=== PATIENT | male | born 1980 | race Caucasian/White ===

== ENCOUNTER 2018-03-01 08:30 | Emergency (ER) | payer OTHER ==
--- OUTSIDE RECORDS SUMMARY | 2018-03-01 08:33 | XMS REPORT | Summary of Care ---
:1980 Author Name Danitza Bingham M.A. Address Unavailable Unavailable , Care Team Providers Name Role Phone IRMA ACOSTA M.D. Unavailable Unavailable Unavailable Unavailable Unavailable Functional Status Name Dates Details Functional status health issues are not documented Status: Name Dates Details Cognitive status health issues are not documented Status: Problems Name Dates Details Anxiety (300.00, F41.9) Status: Active Medications Name Dates Details DiazePAM 10 MG Oral Tablet TAKE 1 TABLET 1 HOUR PRIOR TO PROCEDURE, MAY REPEAT IF NEEDED. Quantity: 3 Refills: 0 IRMA ACOSTA M.D. Start : 03-Dec-2017 Active Allergies and Adverse Reactions Name Dates Details No Known Drug Allergies (Allergy) Status: Active Procedures Procedure Dates Details Procedures not documented Immunization Name Dates Details Immunizations not documented Social History Name Dates Details Unknown if ever smoked Vital Signs Date Test Result Details No Known Vitals to report Results Date Description Value Details Results not documented Plan of Care Name Dates Details Planned Observations Planned Goals not documented Interventions Provided Medication ChangesDiazePAM 10 MG Oral Tablet - Renew Instructions Name Dates Details Instructions not documented Encounters Appointment; IRMA ACOSTA M.D. On: 09-May-2017 10:30 Encounter Diagnosis: Problem not documented Appointment; IRMA ACOSTA M.D. On: 27-May-2017 10:00 Encounter Diagnosis: Problem not documented Appointment; PIERRE DUFFY, PTammiATammi On: 04-Jun-2017 11:15 Encounter Diagnosis: Problem not documented Appointment; IRMA ACOSTA M.D. On: 25-Jul-2017 11:00 Encounter Diagnosis: Problem not documented Appointment; PIERRE DUFFY PChristophe On: 05-Sep-2017 11:15 Encounter Diagnosis: Problem not documented Appointment; IRMA ACOSTA M.D. On: 08-Oct-2017 7:30 Encounter Diagnosis: Problem not documented Appointment; IRMA ACOSTA M.D. On: 03-Dec-2017 13:15 Encounter Diagnosis: Problem not documented
--- OUTSIDE RECORDS SUMMARY | 2018-03-01 08:33 | XMS REPORT | Clinical Summary ---
:1980 Author Organization [facility] Address [address] [place] [id number] Phone Care Team Providers Name Role Phone Unavailable Primary Care Provider Unavailable Allergies Not on File Current Medications Not on file Active Problems Not on file Encounters Date Type Specialty Care Team Description 09/23/2017 Procedure Pass 09/22/2017 Anesthesia Event Cathy Graham MD 08/28/2017 Orders Only Neurosurgery Prince Stein, Pre-op testing ( Primary MD Dx) after 02/28/2017 Social History Tobacco Use Types Packs/Day Years Used Date Never Assessed Sex Assigned at Date Recorded Not on file Last Filed Vital Signs Not on file Plan of Treatment Not on file Results Not on fileafter 02/28/2017
[2018-03-01] MEDS ORDERED: HYDROCODONE/APAP 10/325 TAB ONE (09:39)
--- NOTE | 2018-03-01 09:40 | EDPHYS ---
Physician Documentation [facility] Name: Khang Tejada Age: 38 yrs Sex: Male : 1980 Arrival Date: 03/01/2018 Time: 08:34 Bed 15 Private MD: ED Physician Reid Cruz HPI: 03/01 10:11 This 38 yrs old Male presents to ER via Ambulatory with complaints of kdr Surgical Sight Reopened. 10:11 Patient presents to ED for recheck of: laceration. The affected area is on the thoracic kdr area and left low back. Previous treatment: The patient had spinal surgery (5 1/2 weeks ago) and over the last week or more, the wounds have started to open up/dehiscence . 10:12 The patient has not experienced similar symptoms in the past. The patient has been kdr recently seen by a physician:. Historical: - Allergies: 08:37 No Known Allergies; ss - Immunization history:: Adult Immunizations up to date. - Social history:: Smoking status: Patient/guardian denies using tobacco. - Ebola Screening: : Patient denies exposure to infectious person Patient denies travel to an Ebola-affected area in the 21 days before illness onset. ROS: 10:12 Constitutional: Negative for fever, chills, and weight loss, Eyes: Negative for injury, kdr pain, redness, and discharge, Neck: Negative for injury, pain, and swelling, Cardiovascular: Negative for chest pain, palpitations, and edema, Respiratory: Negative for shortness of breath, cough, wheezing, and pleuritic chest pain, Abdomen/GI: Negative for abdominal pain, nausea, vomiting, diarrhea, and constipation, : Negative for injury, bleeding, discharge, and swelling, MS/Extremity: Negative for injury and deformity, Neuro: Negative for headache, weakness, numbness, tingling, and seizure activity. Psych: Negative for depression, anxiety, suicide ideation, homicidal ideation, and hallucinations, Allergy/Immunology: Negative for hives, rash, and allergies, Endocrine: Negative for neck swelling, polydipsia, polyuria, polyphagia, and marked weight changes, Hematologic/Lymphatic: Negative for swollen nodes, abnormal bleeding, and unusual bruising. 10:12 Back: Positive for pain at rest, Vertical incision to the mid thoracic region 4 cm, slightly open with a depth of about 3 mm. Left posterior upper buttock with a horizontal incision 5 cm open to a depth of 5 mm. Exam: 10:12 Constitutional: This is a well developed, well nourished patient who is awake, alert, kdr and in no acute distress. Head/Face: Normocephalic, atraumatic. 10:12 Back: See the above note. Vital Signs: 08:37 Pulse 86; Resp 16; Temp 97.4(TE); Pulse Ox 100% on R/A; Weight 137.89 kg; Height 6 ft. ss 2 in. (187.96 cm); Pain 5/10; 08:39 BP 119 / 86; ss 10:33 BP 120 / 80; Pulse 85; Resp 18; Pulse Ox 100% on R/A; hj 08:37 Body Mass Index 39.03 (137.89 kg, 187.96 cm) ss MDM: 09:39 Patient medically screened. kdr 10:36 Data reviewed: vital signs, nurses notes. kdr 03/01 09:35 Order name: [facility]. Order: Clean wounds with sterile H2O and then apply benzoin and kdr steri-strips Cover with non-stick; Complete Time: 10:34 Administered Medications: 09:35 Drug: Waterloo 10 mg-325 mg 1 tabs Route: PO; hj 10:33 Follow up: Response: No adverse reaction; Pain is decreased hj 09:41 Drug: Clindamycin 300 mg Route: PO; hj 10:33 Follow up: Response: No adverse reaction hj Disposition: 03/01/18 09:39 Discharged to Home. Impression: Back wound dehiscense. - Condition is Stable. - Prescriptions for Clindamycin HCl 300 mg Oral Capsule - take 1 capsule by ORAL route every 6 hours for 7 days; 28 capsule. Tylenol- Codeine #3 300-30 mg Oral Tablet - take 2 tablets by ORAL route every 6 hours As needed; 16 tablet. - Medication Reconciliation Form, Thank You Letter, Antibiotic Education, Prescription Opioid Use form. - Follow up: Private Physician; When: 2 - 3 days; Reason: If symptoms return, Further diagnostic work-up, Recheck today's complaints, Continuance of care, Re-evaluation by your physician. - Problem is an ongoing problem. - Symptoms have improved. Signatures: Reid Cruz MD MD kdr Neda Castro RN Marvin Acuna RN RN hj Corrections: (The following items were deleted from the chart) 10:30 10:11 Previous treatment: The patient had spinal surgery and over the last week or kdr more, the wounds have started to open up. kdr 10:33 09:39 03/01/2018 09:39 Discharged to Home. Impression: Back wound dehiscense. Condition hj is Stable. Forms are Medication Reconciliation Form, Thank You Letter, Antibiotic Education, Prescription Opioid Use. Follow up: Private Physician; When: 2 - 3 days; Reason: If symptoms return, Further diagnostic work-up, Recheck today's complaints, Continuance of care, Re-evaluation by your physician. Problem is an ongoing problem. Symptoms have improved. kdr
--- NOTE | 2018-03-01 09:40 | ER ---
Nurse's Notes [facility] Name: Khang Tejada Age: 38 yrs Sex: Male : 1980 Arrival Date: 03/01/2018 Time: 08:34 Bed 15 Private MD: Diagnosis: Back wound dehiscense Presentation: 03/01 08:35 Presenting complaint: Patient states: Patient reports that he had a spinal stimulator ss placed 5.5 weeks ago by a neurosurgeon in [place], had the sutures and fei removed after 4 weeks postop. Patient reports that sometime during the night and/ or this morning, incisions have opened. Transition of care: patient was not received from another setting of care. Onset of symptoms was March 01, 2018. Risk Assessment: Do you want to hurt yourself or someone else? Patient reports no desire to harm self or others. Initial Sepsis Screen: Does the patient meet any 2 criteria? No. Patient's initial sepsis screen is negative. Does the patient have a suspected source of infection? No. Patient's initial sepsis screen is negative. Care prior to arrival: None. 08:35 Method Of Arrival: Ambulatory ss 08:35 Acuity: LUZMA 3 ss Triage Assessment: 08:57 General: Appears in no apparent distress. uncomfortable, Behavior is calm, cooperative, hj appropriate for age. Pain: Denies pain. Historical: - Allergies: 08:37 No Known Allergies; ss - Immunization history:: Adult Immunizations up to date. - Social history:: Smoking status: Patient/guardian denies using tobacco. - Ebola Screening: : Patient denies exposure to infectious person Patient denies travel to an Ebola-affected area in the 21 days before illness onset. Screenin:57 Abuse screen: Denies threats or abuse. Denies injuries from another. Nutritional hj screening: No deficits noted. Tuberculosis screening: No symptoms or risk factors identified. Fall Risk None identified. Assessment: 08:37 Reassessment: see triage assessment;. hj Vital Signs: 08:37 Pulse 86; Resp 16; Temp 97.4(TE); Pulse Ox 100% on R/A; Weight 137.89 kg; Height 6 ft. ss 2 in. (187.96 cm); Pain 5/10; 08:39 BP 119 / 86; ss 10:33 BP 120 / 80; Pulse 85; Resp 18; Pulse Ox 100% on R/A; hj 08:37 Body Mass Index 39.03 (137.89 kg, 187.96 cm) ED Course: 08:34 Patient arrived in ED. mr 08:37 Triage completed. ss 08:37 Arm band placed on right wrist. ss 08:46 Reid Cruz MD is Attending Physician. kdr 08:55 Marvin Gutierrez, KIRAN is Primary Nurse. hj 08:57 Patient has correct armband on for positive identification. Bed in low position. Call hj light in reach. Side rails up X 1. Adult w/ patient. 10:32 No provider procedures requiring assistance completed. Patient did not have IV access hj during this emergency room visit. Administered Medications: 09:35 Drug: Romeo 10 mg-325 mg 1 tabs Route: PO; hj 10:33 Follow up: Response: No adverse reaction; Pain is decreased hj 09:41 Drug: Clindamycin 300 mg Route: PO; hj 10:33 Follow up: Response: No adverse reaction hj Outcome: 09:39 Discharge ordered by . kdr 10:32 Discharged to home ambulatory. hj 10:32 Condition: stable 10:32 Discharge instructions given to patient, family, Instructed on discharge instructions, follow up and referral plans. Demonstrated understanding of instructions, follow-up care, medications, Prescriptions given X 2. 10:33 Patient left the ED. hj Signatures: Reid Cruz MD MD kdr Rivera, Maria mr CastroNeda, KIRAN BECK Marvin Gutierrez RN RN hj Corrections: (The following items were deleted from the chart) 08:39 08:35 Acuity: LUZMA 4 [facility]
[2018-03-01] MEDS ORDERED: Mastisol Adhesive Liq ONE (09:51)
[2018-03-01] MEDS ORDERED: CLINDAMYCIN HCL 150 MG CAP ONE (09:54)
[2018-03-01 10:38] VITALS: TEMP 97.4; O2SAT 100
[2018-03-01 10:40] VITALS: BP 120/80
== END 2018-03-01 10:33 | disposition home or self-care (01) ==
LOC: ER 08:30
DX: T81.31XA Disruption of external operation (surgical) wound, not elsewhere classified, initial encounter (principal); Z98.890 Other specified postprocedural states
CPT/HCPCS: 99283

== ENCOUNTER 2018-06-11 14:47 | Emergency (ER) | payer OTHER ==
--- OUTSIDE RECORDS SUMMARY | 2018-06-11 14:50 | XMS REPORT | Clinical Summary ---
:1980 Author Organization [facility] Address [address] [place] [id number] Care Team Providers Name Role Phone Unavailable Primary Care Provider Unavailable Allergies Not on File Medications Not on file Active Problems Not on file Encounters Date Type Specialty Care Team Description 09/22/2017 Anesthesia Event Cathy Graham MD 08/28/2017 Orders Only Neurosurgery Prince Stein, Pre-op testing ( Primary MD Dx) after 06/10/2017 Social History Tobacco Use Types Packs/Day Years Used Date Never Assessed Sex Assigned at Date Recorded Not on file Job Start Date Occupation Industry Not on file Not on file Not on file Travel History Travel Start Travel End No recent travel history available. Last Filed Vital Signs Not on file Plan of Treatment Not on file Results Not on fileafter 06/10/2017 Insurance Payer Benefit Plan / Group Subscriber ID Type Phone Address MEDICARE MEDICARE A B xxxxxxxxxx Medicare FOR LIFE xxxxxxxxx Other Govt (, [place], [facility], etc.) (Home) [place] [address]
--- NOTE | 2018-06-11 17:03 | RAD REPORT ---
EXAM DESCRIPTION: US - Extremity Venous Uni Ltd - 06/11/2018 4:46 pm CLINICAL HISTORY: Leg pain and swelling COMPARISON: None. TECHNIQUE: Real-time sonographic evaluation of the right lower extremity deep venous systems was per formed. FINDINGS: Normal compressibility, flow augmentation, phasic flow and spontaneous flow are identified in the right lower extremity common femoral, superficial femoral, popliteal and posterior tibial vei ns. No intraluminal filling defects seen. IMPRESSION: No DVT in the right lower extremity.
--- NOTE | 2018-06-11 17:04 | RAD REPORT ---
EXAM DESCRIPTION: RAD - Chest Single View - 06/11/2018 4:50 pm CLINICAL HISTORY: Dyspnea COMPARISON: April 2014 TECHNIQUE: AP portable chest image was obtained 1643 hours . FINDINGS: Lungs are clear. Heart and vasculature are normal. No measurable pleural effusion and no p neumothorax. No acute bony abnormality seen. No acute aortic findings suspected. IMPRESSION: No acute cardiopulmonary process. No significant interval change.
[2018-06-11 17:06] LABS: Absolute Lymphocytes (CBC) 1.7 K/uL (0.7-4.9); Absolute Monocytes 0.6 K/uL (0.1-1.3); Basophils % 0.6 % (0-1.3); Eosinophils % 4.1 % (0-4.4); Hematocrit 41.6 % (39.6-49.0); Lymphocytes % 19.9 % (15.3-44.8); MCH 30.4 pg (27.0-35.0); MCV 88.6 fL (80-100); MPV 7.9 fL (7.6-11.3); Monocytes % 7.1 % (3.3-12.3); RBC Red Blood Cell Count 4.69 M/uL (4.33-5.43)
[2018-06-11 17:10] LABS: Protime INR 1.03
[2018-06-11 17:36] LABS: ALT/SGPT 52 U/L (12-78); AST/SGOT 28 U/L (15-37); Albumin 3.8 g/dL (3.4-5.0); Alkaline Phosphatase 83 U/L (45-117); BUN Blood Urea Nitrogen 12 mg/dL (7-18); Bicarbonate 29 mmol/L (21-32); Bilirubin Direct 0.1 mg/dL (0-0.2); Bilirubin Total 0.5 mg/dL (0.2-1.0); Glucose Level 101 mg/dL (74-106); Magnesium 2.3 mg/dL (1.8-2.4); NT PRO-BNP 20 pg/mL (<125); Potassium 3.3 mmol/L (3.5-5.1); Protein, Total 7.6 g/dL (6.4-8.2); Sodium Level 139 mmol/L (136-145); Troponin (Emerg Dept Use Only) < 0.02 ng/mL (0.0-0.045)
--- NOTE | 2018-06-11 18:01 | RAD REPORT ---
EXAM DESCRIPTION: CT - Chest For Pe Angio - 06/11/2018 5:54 pm CLINICAL HISTORY: Chest pain, shortness of breath COMPARISON: Chest films same date, CT study April 2015 TECHNIQUE: Dynamically enhanced 3 mm thick images of the chest were obtained during administration o f approximately 150mL Isovue 370 IV contrast. Coronal and oblique MIP reconstruction images were gene rated and reviewed. Exam utilizes a protocol to evaluate the pulmonary arterial tree. All CT scans are performed using dose optimization technique as appropriate and may include automated exposure control or mA/KV adjustment according to patient size. FINDINGS: No pulmonary emboli are identified. The aorta as imaged shows no acute or suspicious finding. No pericardial thickening or effusion. No focal consolidation or suspicious mass lesion. In the anterior left upper lobe an 8 millimeter non calcified nodule is seen. Approximately 7 millimeter nodule was seen in 2015. On today's study there is motion degradation that obscures the margins and probably exaggerates the size. No other nodule se en. No pleural effusion or pleural thickening. No mediastinal or hilar suspicious masses. No chest wall masses or abnormal axillary lymphadenopathy. IMPRESSION: No pulmonary emboli identified. No focal lung parenchymal process. Small pulmonary nodule in the anterior left upper lobe measures larger than 2015 though this is suspe cted to be due to motion. As a precaution, repeat CT chest examination in 6-12 months could be perfor med to monitor stability.
[2018-06-11] MEDS ORDERED: LORazepam 2 MG/ML VIAL ONE (18:12)
--- NOTE | 2018-06-11 19:34 | RAD REPORT ---
EXAM DESCRIPTION: RAD - Knee Right 3 View - 06/11/2018 6:40 pm CLINICAL HISTORY: Knee pain and swelling, no trauma history detailed. COMPARISON: None. FINDINGS: No fracture, dislocation or periosteal reaction.No measurable joint effusion seen. No join t space narrowing. Very minimal lateral compartment marginal spurs seen. Patella femoral joint space is normal. IMPRESSION: No acute right knee bone or joint finding. Clinical concerns for internal derangement or occult bony injury could be further assessed with MR im aging.
--- NOTE | 2018-06-11 21:15 | ER ---
Nurse's Notes [facility] Name: Khang Tejada Age: 38 yrs Sex: Male : 1980 Arrival Date: 06/11/2018 Time: 14:49 Bed 25 Private MD: Unknown, Unknown Diagnosis: Pain in right knee;Acute stress reaction Presentation: 06/11 15:03 Presenting complaint: Patient states: i have SOB since Friday worst when i lay down; hj now my R leg is swollen and my R leg is hurting; denies chest pain; denies fever and chills;. Transition of care: patient was not received from another setting of care. Onset of symptoms was June 11, 2018. Risk Assessment: Do you want to hurt yourself or someone else? Patient reports no desire to harm self or others. Initial Sepsis Screen: Does the patient meet any 2 criteria? No. Patient's initial sepsis screen is negative. Does the patient have a suspected source of infection? No. Patient's initial sepsis screen is negative. Care prior to arrival: None. 15:03 Method Of Arrival: Ambulatory 15:03 Acuity: LUZMA 3 hj Triage Assessment: 15:07 General: Appears in no apparent distress. uncomfortable, Behavior is calm, cooperative, hj appropriate for age. Respiratory: Reports shortness of breath labored breathing Onset: The symptoms/episode began/occurred suddenly, Historical: - Allergies: 15:06 No Known Drug Allergies; hj - Home Meds: 15:06 Oxycodone HCl Oral [Active]; venlafaxine oral oral [Active]; hj - PMHx: 15:06 Hypertension; Back pain; hj - PSHx: 15:06 back; hj - Immunization history:: Adult Immunizations up to date. - Social history:: Smoking status: Patient/guardian denies using tobacco, Patient/guardian denies using alcohol. - Ebola Screening: : Patient negative for fever greater than or equal to 101.5 degrees Fahrenheit, and additional compatible Ebola Virus Disease symptoms Patient denies exposure to infectious person Patient denies travel to an Ebola-affected area in the 21 days before illness onset. Screenin:06 Abuse screen: Denies threats or abuse. Denies injuries from another. Nutritional hj screening: No deficits noted. Tuberculosis screening: No symptoms or risk factors identified. Fall Risk None identified. Assessment: 15:06 Pain: Complains of pain in back. Cardiovascular: Rhythm is. Respiratory: Airway is hj patent Respiratory effort is even, unlabored, Respiratory pattern is regular, symmetrical, Breath sounds are clear. 16:26 General: Appears in no apparent distress. well groomed, well developed, well nourished, tl3 Behavior is calm, cooperative, appropriate for age. Pain: Complains of pain in back. Neuro: No deficits noted. Level of Consciousness is awake, alert, obeys commands, Oriented to person, place, time, situation, Appropriate for age. Cardiovascular: Heart tones S1 S2 present. Respiratory: Airway is patent Respiratory effort is even, unlabored, Respiratory pattern is regular, symmetrical. GI: No deficits noted. No signs and/or symptoms were reported involving the gastrointestinal system. : No deficits noted. No signs and/or symptoms were reported regarding the genitourinary system. EENT: No deficits noted. No signs and/or symptoms were reported regarding the EENT system. Derm: No deficits noted. No signs and/or symptoms reported regarding the dermatologic system. Musculoskeletal: Reports swelling in right thigh and lower leg. 16:28 Reassessment: ultra sound at bedside. tl3 17:15 Reassessment: pt anxious Yoan at bedside. tl3 18:54 Reassessment: Patient appears in no apparent distress at this time. Patient and/or tl3 family updated on plan of care and expected duration. Pain level reassessed. pt is sleeping quietly. 20:22 Reassessment: Patient appears in no apparent distress at this time. No changes from tl3 previously documented assessment. Patient and/or family updated on plan of care and expected duration. Pain level reassessed. Patient is alert, oriented x 3, equal unlabored respirations, skin warm/dry/pink. pt continues to sleep quietly. 21:24 Reassessment: Patient appears in no apparent distress at this time. No changes from tl3 previously documented assessment. Patient and/or family updated on plan of care and expected duration. Pain level reassessed. Patient is alert, oriented x 3, equal unlabored respirations, skin warm/dry/pink. Vital Signs: 15:07 BP 107 / 86; Pulse 88; Resp 18; Temp 97.5(TE); Pulse Ox 100% on R/A; Weight 142.88 kg; hj Height 6 ft. 1 in. (185.42 cm); Pain 0/10; 17:00 BP 114 / 98; Pulse 93; Resp 28; Pulse Ox 96% ; tl3 18:57 BP 111 / 93; Pulse 85; Resp 17; Pulse Ox 99% on R/A; tl3 20:17 BP 130 / 81; Pulse 83; Resp 18; Pulse Ox 98% on R/A; mg2 20:22 BP 130 / 81; Pulse 73; Resp 14; Pulse Ox 98% on R/A; tl3 21:24 BP 118 / 83; Pulse 96; Resp 16; Pulse Ox 98% on R/A; tl3 15:07 Body Mass Index 41.56 (142.88 kg, 185.42 cm) ED Course: 14:49 Patient arrived in ED. ag5 14:50 Unknown, Unknown is Private Physician. ag5 15:04 Triage completed. hj 15:07 Arm band placed on left wrist. hj 15:07 Patient has correct armband on for positive identification. Bed in low position. Call light in reach. Side rails up X 1. 15:48 Yoan Souza PA is PHCP. jr8 15:48 Reid Cruz MD is Attending Physician. jr8 16:09 Lydia Perdue, KIRAN is Primary Nurse. tl3 16:26 No provider procedures requiring assistance completed. tl3 16:46 US Extremity Venous Unilateral Ltd In Process Unspecified. EDMS 16:51 XRAY Chest (1 view) In Process Unspecified. EDMS 16:55 Basic Metabolic Panel Sent. ds4 16:55 CBC with Diff Sent. ds4 16:56 LFT's Sent. ds4 16:56 Magnesium Sent. ds4 16:56 NT PRO-BNP Sent. ds4 16:56 PT-INR Sent. ds4 16:56 Troponin (emerg Dept Use Only) Sent. ds4 16:56 Basic Metabolic Panel Sent. ds4 16:56 Inserted saline lock: 18 gauge in left antecubital area, using aseptic technique. Blood ds4 collected. 17:03 EKG done, by precision optics technician. reviewed by Yoan RALPH. sm3 17:15 Radiology exam delayed due to lab results not completed at this time. (BUN/Creatinine). nj 17:55 CT Chest For PE Angio In Process Unspecified. EDMS 18:25 PHCP role handed off by Yoan Souza PA pm1 18:25 Octaviano Medley NP is PHCP. pm1 18:40 XRAY Knee RIGHT 3 view In Process Unspecified. EDMS 21:24 IV discontinued, intact, bleeding controlled, No redness/swelling at site. Pressure tl3 dressing applied. Administered Medications: 18:38 Drug: Ativan 1 mg Route: IVP; Site: left antecubital; mg2 19:03 Follow up: Response: No adverse reaction tl3 18:45 Drug: Ativan 1 mg Route: IVP; Infused Over: 2 mins; Site: left antecubital; tl3 19:04 Follow up: Response: No adverse reaction; Marked relief of symptoms tl3 Outcome: 21:14 Discharge ordered by . pm1 21:24 Discharged to home ambulatory. tl3 21:24 Condition: stable 21:24 Discharge instructions given to patient, Instructed on discharge instructions, follow up and referral plans. Demonstrated understanding of instructions, follow-up care. 21:27 Patient left the ED. tl3 Signatures: Dispatcher [employer] EDMS Yoan Souza PA PA jr8 Vern Fernández ds4 Marvin Gutierrez RN RN hj Octaviano Medley NP [employer]HER [employer] BINDER OPERATOR pm1 Bertin Benson Tammy, RN RN tl3 Terry Ramirez RN RN mg2 Eda Mitchell sm3 Eufemia Mackenzie ag5 Corrections: (The following items were deleted from the chart) 15:09 15:07 Pulse 66bpm; Resp 18bpm; Pulse Ox 100% RA; Temp 97.5F Temporal; 142.88 kg; Height hj 6 ft. 1 in.; BMI: 41.5; Pain 0/10; hj 15:12 15:07 Pulse 88bpm; Resp 18bpm; Pulse Ox 100% RA; Temp 97.5F Temporal; 142.88 kg; Height hj 6 ft. 1 in.; BMI: 41.5; Pain 0/10; hj
--- NOTE | 2018-06-11 21:16 | EDPHYS ---
Physician Documentation [facility] Name: Khang Tejada Age: 38 yrs Sex: Male : 1980 Arrival Date: 06/11/2018 Time: 14:49 Bed 25 Private MD: Unknown, Unknown ED Physician Reid Cruz HPI: 06/11 17:13 This 38 yrs old Male presents to ER via Ambulatory with complaints of jr8 Shortness Of Breath, RIGHT LEG SWOLLEN. 17:13 Onset: The symptoms/episode began/occurred acutely, 4 day(s) ago. Duration: The jr8 symptoms are continuous. The patient's shortness of breath is aggravated by supine position. Severity of symptoms: At their worst the symptoms were moderate in the emergency department the symptoms are unchanged. The patient has not experienced similar symptoms in the past. The patient has not recently seen a physician. Patient stated that she has shortness of breath that was worse with laying down a few months ago. Was seen in ED with negative results. This past Friday, started with similar symptoms but also noted leg swelling to right side . Historical: - Allergies: 15:06 No Known Drug Allergies; hj - Home Meds: 15:06 Oxycodone HCl Oral [Active]; venlafaxine oral oral [Active]; hj - PMHx: 15:06 Hypertension; Back pain; hj - PSHx: 15:06 back; hj - Immunization history:: Adult Immunizations up to date. - Social history:: Smoking status: Patient/guardian denies using tobacco, Patient/guardian denies using alcohol. - Ebola Screening: : Patient negative for fever greater than or equal to 101.5 degrees Fahrenheit, and additional compatible Ebola Virus Disease symptoms Patient denies exposure to infectious person Patient denies travel to an Ebola-affected area in the 21 days before illness onset. ROS: 17:13 Eyes: Negative for injury, pain, redness, and discharge, ENT: Negative for injury, jr8 pain, and discharge, Neck: Negative for injury, pain, and swelling, Abdomen/GI: Negative for abdominal pain, nausea, vomiting, diarrhea, and constipation, Back: Negative for injury and pain, MS/Extremity: Negative for injury and deformity. Positive for swelling Skin: Negative for injury, rash, and discoloration, Neuro: Negative for headache, weakness, numbness, tingling, and seizure. 17:13 Cardiovascular: Positive for edema, orthopnea. 17:13 Respiratory: Positive for dyspnea on exertion, orthopnea, shortness of breath. Exam: 18:20 Head/Face: Normocephalic, atraumatic. Eyes: Pupils equal round and reactive to light, jr8 extra-ocular motions intact. Lids and lashes normal. Conjunctiva and sclera are non-icteric and not injected. Cornea within normal limits. Periorbital areas with no swelling, redness, or edema. ENT: Nares patent. No nasal discharge, no septal abnormalities noted. Tympanic membranes are normal and external auditory canals are clear. Oropharynx with no redness, swelling, or masses, exudates, or evidence of obstruction, uvula midline. Mucous membranes moist. Neck: Trachea midline, no thyromegaly or masses palpated, and no cervical lymphadenopathy. Supple, full range of motion without nuchal rigidity, or vertebral point tenderness. No Meningismus. Cardiovascular: Regular rate and rhythm with a normal S1 and S2. No gallops, murmurs, or rubs. Normal PMI, no JVD. No pulse deficits. Respiratory: Lungs have equal breath sounds bilaterally, clear to auscultation and percussion. No rales, rhonchi or wheezes noted. No increased work of breathing, no retractions or nasal flaring. Abdomen/GI: Soft, non-tender, with normal bowel sounds. No distension or tympany. No guarding or rebound. No evidence of tenderness throughout. Back: No spinal tenderness. No costovertebral tenderness. Full range of motion. Skin: Warm, dry with normal turgor. Normal color with no rashes, no lesions, and no evidence of cellulitis. Neuro: Awake and alert, GCS 15, oriented to person, place, time, and situation. Cranial nerves II-XII grossly intact. Motor strength 5/5 in all extremities. Sensory grossly intact. Cerebellar exam normal. Normal gait. 18:20 Musculoskeletal/extremity: Extremities: grossly normal except: noted in the right leg: Mild swelling noted just proximal to the knee. No other edema noted, ROM: intact in all extremities, Circulation is intact in all extremities. Sensation intact. Vital Signs: 15:07 BP 107 / 86; Pulse 88; Resp 18; Temp 97.5(TE); Pulse Ox 100% on R/A; Weight 142.88 kg; hj Height 6 ft. 1 in. (185.42 cm); Pain 0/10; 17:00 BP 114 / 98; Pulse 93; Resp 28; Pulse Ox 96% ; tl3 18:57 BP 111 / 93; Pulse 85; Resp 17; Pulse Ox 99% on R/A; tl3 20:17 BP 130 / 81; Pulse 83; Resp 18; Pulse Ox 98% on R/A; mg2 20:22 BP 130 / 81; Pulse 73; Resp 14; Pulse Ox 98% on R/A; tl3 21:24 BP 118 / 83; Pulse 96; Resp 16; Pulse Ox 98% on R/A; tl3 15:07 Body Mass Index 41.56 (142.88 kg, 185.42 cm) hj MDM: 15:48 Patient medically screened. 8 18:21 Data reviewed: vital signs, nurses notes, lab test result(s), EKG, radiologic studies, [facility] CT scan, plain films. Data interpreted: Pulse oximetry: on room air is 100 %. Interpretation: normal. Counseling: I had a detailed discussion with the patient and/or guardian regarding: the historical points, exam findings, and any diagnostic results supporting the discharge/admit diagnosis, lab results, radiology results. ED course: Patient feeling very anxious. Will give ativan to help. Discussed with patient thus far negative for acute findings. No infection, PE, DVT, heart arrhythmia, cardiac injury, or other acute pulmonary findings . 06/11 16:19 Order name: Basic Metabolic Panel [facility] 06/11 16:19 Order name: CBC with Diff; Complete Time: 17:11 06/11 16:19 Order name: LFT's; Complete Time: 18:01 06/11 16:19 Order name: Magnesium; Complete Time: 18:06/11 16:19 Order name: NT PRO-BNP; Complete Time: 18:01 06/11 16:19 Order name: PT-INR; Complete Time: 17:13 06/11 16:19 Order name: Troponin (emerg Dept Use Only); Complete Time: 18:01 06/11 16:19 Order name: XRAY Chest (1 view); Complete Time: 17:11 06/11 16:19 Order name: DD; Complete Time: 17:13 [facility] 06/11 16:20 Order name: US Extremity Venous Unilateral Ltd; Complete Time: 17:11 [facility] 06/11 16:20 Order name: Basic Metabolic Panel; Complete Time: 18:01 [facility] 06/11 17:13 Order name: CT Chest For PE Angio; Complete Time: 18:11 [facility] 06/11 18:19 Order name: XRAY Knee RIGHT 3 view; Complete Time: 19:37 [facility] 06/11 16:19 Order name: EKG; Complete Time: 16:21 [facility] 06/11 16:19 Order name: Cardiac monitoring; Complete Time: 16:58 [facility] 06/11 16:19 Order name: EKG - Nurse/Tech; Complete Time: 16:56 [facility] 06/11 16:19 Order name: IV Saline Lock; Complete Time: 16:55 [facility] 06/11 16:19 Order name: Labs collected and sent; Complete Time: 16:55 [facility] 06/11 16:19 Order name: O2 Per Protocol; Complete Time: 16:55 [facility] 06/11 16:19 Order name: O2 Sat Monitoring; Complete Time: 16:55 [facility] Administered Medications: 18:38 Drug: Ativan 1 mg Route: IVP; Site: left antecubital; mg2 19:03 Follow up: Response: No adverse reaction tl3 18:45 Drug: Ativan 1 mg Route: IVP; Infused Over: 2 mins; Site: left antecubital; tl3 19:04 Follow up: Response: No adverse reaction; Marked relief of symptoms tl3 Disposition: 06/11/18 21:14 Discharged to Home. Impression: Acute stress reaction, Pain in right knee. - Condition is Stable. - Discharge Instructions: Knee Pain, Stress and Stress Management. - Medication Reconciliation Form, Thank You Letter, Antibiotic Education, Prescription Opioid Use form. - Follow up: Emergency Department; When: As needed; Reason: Worsening of condition. Follow up: Private Physician; When: 2 - 3 days; Reason: Recheck today's complaints, Continuance of care, Re-evaluation by your physician. - Problem is new. - Symptoms have improved. Signatures: Dispatcher [employer] [facility] Yoan Souza PA PA jr8 Marvin Gutierrez, RN Octaviano Santacruz NP [employer] pm1 Lydia Perdue RN RN tl3 Terry Ramirez, RN RN mg2 Corrections: (The following items were deleted from the chart) 18:20 17:13 Eyes: Negative for injury, pain, redness, and discharge, ENT: Negative for jr8 injury, pain, and discharge, Neck: Negative for injury, pain, and swelling, Abdomen/GI: Negative for abdominal pain, nausea, vomiting, diarrhea, and constipation, Back: Negative for injury and pain, MS/Extremity: Negative for injury and deformity, Skin: Negative for injury, rash, and discoloration, Neuro: Negative for headache, weakness, numbness, tingling, and seizure, jr8 21:27 21:14 06/11/2018 21:14 Discharged to Home. Impression: Acute stress reaction; Pain in tl3 right knee. Condition is Stable. Forms are Medication Reconciliation Form, Thank You Letter, Antibiotic Education, Prescription Opioid Use. Follow up: Emergency Department; When: As needed; Reason: Worsening of condition. Follow up: Private Physician; When: 2 - 3 days; Reason: Recheck today's complaints, Continuance of care, Re-evaluation by your physician. Problem is new. Symptoms have improved. pm1
[2018-06-11 22:16] VITALS: TEMP 97.5
[2018-06-11 22:20] VITALS: O2SAT 98
[2018-06-11 22:23] VITALS: BP 118/83
--- NOTE | 2018-06-12 09:24 | EKG ---
Test Date: 2018-06-11 Test Time: 16:54:43 Decal Applier: JUDITH MEASUREMENT RESULTS: Intervals: Rate: 70 CA: 180 QRSD: 96 QT: 412 QTc: 444 [place]: P: 24 CA: 180 QRS: 41 T: 37 INTERPRETIVE STATEMENTS: Normal sinus rhythm Normal ECG Compared to ECG 12/13/2014 16:13:20 No significant changes Electronically Signed On 06-12-18 09:23:59 RN LACTATION CONSULTANT by Joss Orozco
== END 2018-06-11 21:27 | disposition home or self-care (01) ==
LOC: ER 14:47
DX: F43.0 Acute stress reaction (principal); M25.561 Pain in right knee; I10 Essential (primary) hypertension
CPT/HCPCS: 36415; 71045; 71275; 73562; 80048; 80076; 83735; 83880; 84484; 85025; 85379; 85610; 93005; 93971; 96374; 99284; Q9967